=== PATIENT | female | born 1950 | race Hispanic/Latino ===

== ENCOUNTER 2019-07-19 01:34 | Emergency (ER) | payer BC, OTHER ==
[2019-07-19] MEDS ORDERED: ONDANSETRON 4 MG/2 ML VIAL ONE (02:19)
[2019-07-19] MEDS ORDERED: MORPHINE 2 MG/ML SYR ONE (02:19)
[2019-07-19] MEDS ORDERED: NA CHLORIDE 0.9% 1,000 ML ONE ×2 (02:19→03:49)
[2019-07-19 02:40] LABS: Absolute Lymphocytes (CBC) 1.1 K/uL (0.7-4.9); Basophils % 0.5 % (0-1.3); Hematocrit 34.4 % (36.0-45.0); Lymphocytes % 6.4 % (15.3-44.8); MPV 9.8 fL (7.6-11.3); RBC Red Blood Cell Count 3.85 M/uL (3.86-4.86)
[2019-07-19 03:10] LABS: Albumin 3.2 g/dL (3.4-5.0); Alkaline Phosphatase 482 U/L (45-117); BUN Blood Urea Nitrogen 27 mg/dL (7-18); Bicarbonate 23 mmol/L (21-32); Bilirubin Total 4.8 mg/dL (0.2-1.0); Glucose Level 254 mg/dL (74-106); Potassium 4.4 mmol/L (3.5-5.1); Sodium Level 131 mmol/L (136-145)
[2019-07-19 03:13] LABS: ALT/SGPT 1186 U/L (12-78); AST/SGOT 674 U/L (15-37)
[2019-07-19 03:14] LABS: Lipase > 30000 U/L (73-393)
[2019-07-19] MEDS ORDERED: CEFOXITIN/SWI 1gm 1 GM/10 ML SYR ONE (04:36)
--- NOTE | 2019-07-19 04:52 | EDPHYS ---
Physician Documentation [facility] Name: Linda Marcelo Age: 69 yrs Sex: Female : 1950 Arrival Date: 07/19/2019 Time: 01:35 Bed 15 Private MD: ED Physician Finn Palmer HPI: 07/18 02:06 This 69 yrs old Female presents to ER via Ambulatory with complaints of pkl Abdominal Pain. 02:06 The patient presents with abdominal pain in the upper abdomen. Onset: The pkl symptoms/episode began/occurred 3 day(s) ago. The symptoms do not radiate. Associated signs and symptoms: Pertinent positives: nausea and vomiting. Historical: - Allergies: :59 No Known Allergies; ao - Home Meds: :59 Lisinopril Oral [Active]; Simvastatin Oral [Active]; Levothroid Oral [Active]; ao - PMHx: :59 Hypertension; Hyperlipidemia; Hypothyroidism; ao - PSHx: :59 Knee surgery; ao - Immunization history:: Adult Immunizations up to date. - Social history:: Smoking status: Patient denies any tobacco usage or history of. Patient/guardian denies using alcohol, street drugs, IV drugs. ROS: 02:06 Eyes: Negative for injury, pain, redness, and discharge, ENT: Negative for injury, pkl pain, and discharge, Neck: Negative for injury, pain, and swelling, Cardiovascular: Negative for chest pain, palpitations, and edema, Respiratory: Negative for shortness of breath, cough, wheezing, and pleuritic chest pain. 02:06 Abdomen/GI: Positive for abdominal pain, nausea and vomiting, of the right upper quadrant and left upper quadrant. 02:06 Back: Negative for acute changes. 02:06 : Negative for urinary symptoms. 02:06 MS/extremity: Negative for acute changes. 02:06 Skin: Negative for rash. 02:06 Neuro: Negative for altered mental status. Exam: 02:06 Head/Face: Normocephalic, atraumatic. Eyes: Pupils equal round and reactive to light, pkl extra-ocular motions intact. Lids and lashes normal. Conjunctiva and sclera are non-icteric and not injected. Cornea within normal limits. Periorbital areas with no swelling, redness, or edema. ENT: Nares patent. No nasal discharge, no septal abnormalities noted. Tympanic membranes are normal and external auditory canals are clear. Oropharynx with no redness, swelling, or masses, exudates, or evidence of obstruction, uvula midline. Mucous membranes moist. Neck: Trachea midline, no thyromegaly or masses palpated, and no cervical lymphadenopathy. Supple, full range of motion without nuchal rigidity, or vertebral point tenderness. No Meningismus. Chest/axilla: Normal chest wall appearance and motion. Nontender with no deformity. No lesions are appreciated. Cardiovascular: Regular rate and rhythm with a normal S1 and S2. No gallops, murmurs, or rubs. Normal PMI, no JVD. No pulse deficits. Respiratory: Lungs have equal breath sounds bilaterally, clear to auscultation and percussion. No rales, rhonchi or wheezes noted. No increased work of breathing, no retractions or nasal flaring. 02:06 Abdomen/GI: Bowel sounds: normal, Palpation: soft, mild abdominal tenderness, in the right upper quadrant and left upper quadrant. 02:06 Back: Exam negative for acute changes. 02:06 : Exam negative for acute changes. 02:06 Musculoskeletal/extremity: Exam is negative for acute changes. 02:06 Skin: Exam negative for rash. 02:06 Neuro: Orientation: is normal, Mentation: is normal, Cranial nerves: grossly normal, Motor: is normal. Vital Signs: 01:54 BP 160 / 86; Pulse 110; Resp 16; Temp 98.0(O); Pulse Ox 100% on R/A; Weight 81.65 kg ao (R); Height 5 ft. 4 in. (162.56 cm); 03:14 BP 152 / 84; Pulse 84; Resp 18; Pulse Ox 100% ; ao 05:05 BP 129 / 76; Pulse 82; Resp 18; Pulse Ox 100% ; Pain 0/10; ao 06:40 BP 135 / 80; Pulse 75; Resp 18; Temp 98.6; Pulse Ox 100% ; Pain 0/10; ao 01:54 Body Mass Index 30.90 (81.65 kg, 162.56 cm) ao MDM: 01:51 Patient medically screened. pkl 04:11 Data reviewed: vital signs, nurses notes, lab test result(s), radiologic studies, CT pkl scan. ED course: Talked to Dr. Gaona transfer [facility] for ERCP by Bettina. Dr. to Dr. Dowd ( [place] ) at [facility]. To admit to Hospitalist. 07/18 02:06 Order name: Basic Metabolic Panel; Complete Time: 03:26 pkl 07/18 02:06 Order name: CBC with Diff; Complete Time: 03:26 pkl 07/18 02:06 Order name: Hepatic Function; Complete Time: 03:26 pkl 07/18 02:06 Order name: Lipase; Complete Time: 03:26 pkl 07/18 02:06 Order name: CT Abd/Pelvis - IV Contrast Only pkl 07/18 02:49 Order name: CREATININE WHOLE BLOOD; Complete Time: 03:26 EDMS 07/18 02:06 Order name: IV Saline Lock; Complete Time: 02:32 pkl 07/18 02:06 Order name: Labs collected and sent; Complete Time: 02:32 pkl Administered Medications: 02:20 Drug: Zofran (Ondansetron) 4 mg Route: IVP; Site: left antecubital; ao 03:22 Follow up: Response: No adverse reaction ao 02:34 Drug: NS 0.9% 1000 ml Route: IV; Rate: 125 ml/hr; Site: left antecubital; ao 03:22 Follow up: IV Status: Completed infusion ao 03:22 Follow up: Response: No adverse reaction; RASS: Alert and Calm (0) ao 02:34 Drug: morphine 2 mg Route: IVP; Site: left antecubital; ao 05:38 Follow up: Response: No adverse reaction; RASS: Alert and Calm (0) ao 04:14 Drug: NS 0.9% 1000 ml Route: IV; Rate: 1000 ml; Site: right antecubital; ao 05:24 Follow up: IV Status: Completed infusion; IV Intake: 100ml ao 04:39 Drug: Mefoxin 1 grams Route: IVPB; Infused Over: 30 mins; Site: right antecubital; ao 05:29 Follow up: IV Status: Completed infusion; IV Intake: 100ml ao 04:59 Drug: Zosyn 3.375 grams Route: IVPB; Infused Over: 60 mins; Site: right antecubital; ao 06:00 Follow up: Response: No adverse reaction; IV Status: Completed infusion; IV Intake: ao 100ml Disposition: 07/19/19 04:51 Transfer ordered to [facility]. Diagnosis is Acute cholecystitis Pancreatitis. Elevated liver functions. - Reason for transfer: Higher level of care. - Accepting physician is Dr. Parada. - Condition is Stable. - Problem is new. - Symptoms have improved. Signatures: Dispatcher [employer] EDFinn Ortiz MD MD pkl Luis Mcleod RN RN ao Corrections: (The following items were deleted from the chart) 06:58 04:51 07/19/2019 04:51 Transfer ordered to [facility]. ao Diagnosis is Acute cholecystitis Pancreatitis. Elevated liver functions. Reason for transfer: Higher level of care. Accepting physician is Dr. Parada. Condition is Stable. Problem is new. Symptoms have improved. pkl
--- NOTE | 2019-07-19 04:52 | ER ---
Nurse's Notes [facility] Name: Linda Marcelo Age: 69 yrs Sex: Female : 1950 Arrival Date: 07/19/2019 Time: 01:35 Bed 15 Private MD: Diagnosis: Acute cholecystitis Pancreatitis. Elevated liver functions Presentation: 07/18 01:54 Chief complaint: Patient states: Abdominal pain "PT point at epigastric area" for the ao past two days. Patient also complains of nausea and vomiting x2. Patient states that it feel like acid reflux. Coronavirus screen: Proceed with normal triage. Ebola Screen: Patient negative for fever greater than or equal to 101.5 degrees Fahrenheit, and additional compatible Ebola Virus Disease symptoms Patient denies exposure to infectious person. Patient denies travel to an Ebola-affected area in the 21 days before illness onset. Initial Sepsis Screen: Does the patient meet any 2 criteria? No. Patient's initial sepsis screen is negative. Does the patient have a suspected source of infection? No. Patient's initial sepsis screen is negative. Risk Assessment: Do you want to hurt yourself or someone else? Patient reports no desire to harm self or others. Onset of symptoms is unknown. 01:54 Method Of Arrival: Ambulatory ao 01:54 Acuity: JOSÉ MIGUEL 3 ao Triage Assessment: 02:03 General: Appears in no apparent distress. Behavior is calm, cooperative, appropriate ao for age. Pain: Denies pain. EENT: No signs and/or symptoms were reported regarding the EENT system. Neuro: Level of Consciousness is awake, alert, obeys commands, Oriented to person, place, time, situation, Appropriate for age Moves all extremities. Full function Speech is normal, Facial symmetry appears normal. Cardiovascular: Capillary refill < 3 seconds Patient's skin is warm and dry. Respiratory: Airway is patent Respiratory effort is even, unlabored, Respiratory pattern is regular, symmetrical. GI: Abdomen is non-distended. GI: Reports upper abdominal pain, indigestion, nausea, vomiting. : No signs and/or symptoms were reported regarding the genitourinary system. Derm: No signs and/or symptoms reported regarding the dermatologic system. Musculoskeletal: Circulation, motion, and sensation intact. Range of motion: intact in all extremities. Historical: - Allergies: 01:59 No Known Allergies; ao - Home Meds: :59 Lisinopril Oral [Active]; Simvastatin Oral [Active]; Levothroid Oral [Active]; ao - PMHx: 01:59 Hypertension; Hyperlipidemia; Hypothyroidism; ao - PSHx: 01:59 Knee surgery; ao - Immunization history:: Adult Immunizations up to date. - Social history:: Smoking status: Patient denies any tobacco usage or history of. Patient/guardian denies using alcohol, street drugs, IV drugs. Screenin:00 Abuse screen: Denies threats or abuse. Denies injuries from another. Nutritional ao screening: No deficits noted. Tuberculosis screening: No symptoms or risk factors identified. Fall Risk None identified. Assessment: 02:05 GI: Bowel sounds present X 4 quads. Abd is soft and non tender Abd is non tender. ao 03:14 Reassessment: Lab alert given to Dr Palmer. ao 04:30 Reassessment: Patient appears in no apparent distress at this time. Patient and/or ao family updated on plan of care and expected duration. Pain level reassessed. Updated daughter IN POC. 05:05 Reassessment: Patient appears in no apparent distress at this time. Waiting on room ao assignment to transfer. 05:20 Reassessment: Report given to QUANG Waters. Patient waiting on EMS for transportation at ao this time. 05:37 Reassessment: Updated patient's daughter Moira with room assigned, telephone number ao and POC. Patient waiting on EMS for transportation. 06:56 Reassessment: Hand off to EMS. Patient stable for transportation. Patient agree with ao POC and transportation. Vital Signs: 01:54 BP 160 / 86; Pulse 110; Resp 16; Temp 98.0(O); Pulse Ox 100% on R/A; Weight 81.65 kg ao (R); Height 5 ft. 4 in. (162.56 cm); 03:14 BP 152 / 84; Pulse 84; Resp 18; Pulse Ox 100% ; ao 05:05 BP 129 / 76; Pulse 82; Resp 18; Pulse Ox 100% ; Pain 0/10; ao 06:40 BP 135 / 80; Pulse 75; Resp 18; Temp 98.6; Pulse Ox 100% ; Pain 0/10; ao 01:54 Body Mass Index 30.90 (81.65 kg, 162.56 cm) ao ED Course: 01:35 Patient arrived in ED. ds1 01:50 Finn Palmer MD is Attending Physician. pkl 01:54 Luis Mcleod, QUANG is Primary Nurse. ao 01:57 Triage completed. ao 02:00 Arm band placed on right wrist. Patient placed in an exam room, on a stretcher, on ao oxygen, on fagot maker, on pulse oximetry, Patient notified of wait time. 02:00 No provider procedures requiring assistance completed. ao 02:05 Placed in gown. Bed in low position. Call light in reach. Side rails up X 1. ao 02:30 Inserted saline lock: 20 gauge in left antecubital area, using aseptic technique. Blood ao collected. 03:07 CT Abd/Pelvis - IV Contrast Only In Process Unspecified. EDMS 05:38 Patient transferred, IV remains in place. ao Administered Medications: 02:20 Drug: Zofran (Ondansetron) 4 mg Route: IVP; Site: left antecubital; ao 03:22 Follow up: Response: No adverse reaction ao 02:34 Drug: NS 0.9% 1000 ml Route: IV; Rate: 125 ml/hr; Site: left antecubital; ao 03:22 Follow up: IV Status: Completed infusion ao 03:22 Follow up: Response: No adverse reaction; RASS: Alert and Calm (0) ao 02:34 Drug: morphine 2 mg Route: IVP; Site: left antecubital; ao 05:38 Follow up: Response: No adverse reaction; RASS: Alert and Calm (0) ao 04:14 Drug: NS 0.9% 1000 ml Route: IV; Rate: 1000 ml; Site: right antecubital; ao 05:24 Follow up: IV Status: Completed infusion; IV Intake: 100ml ao 04:39 Drug: Mefoxin 1 grams Route: IVPB; Infused Over: 30 mins; Site: right antecubital; ao 05:29 Follow up: IV Status: Completed infusion; IV Intake: 100ml ao 04:59 Drug: Zosyn 3.375 grams Route: IVPB; Infused Over: 60 mins; Site: right antecubital; ao 06:00 Follow up: Response: No adverse reaction; IV Status: Completed infusion; IV Intake: ao 100ml Intake: 05:24 IV: 100ml; Total: 100ml. ao 05:29 IV: 100ml; Total: 200ml. ao 06:00 IV: 100ml; Total: 300ml. ao Outcome: 04:51 ER care complete, transfer ordered by . leonie 05:38 Condition: stable ao 05:38 Instructed on the need for transfer. ao 06:57 Transferred by ground EMS to [facility], Transfer form completed. ao X-rays sent w/ patient. 06:58 Patient left the ED. ao Signatures: Dispatcher [employer] EDFinn Ortiz MD MD pkl [place], Demi ds1 Luis Mcleod, RN RN ao
[2019-07-19] MEDS ORDERED: PIPER/TAZO/NS 3.375gm 3.375 GM/100 ML BAG ONE (04:58)
[2019-07-19 07:11] VITALS: O2SAT 100
[2019-07-19 07:15] VITALS: BP 135/80; TEMP 98.6
--- NOTE | 2019-07-19 21:05 | RAD REPORT ---
EXAM DESCRIPTION: CT Abdomen and Pelvis With Intravenous Contrast CLINICAL HISTORY: The patient is 69 years old and is Female; ABD PAIN TECHNIQUE: Axial computed tomography images of the abdomen and pelvis with intravenous contrast. S agittal and coronal reformatted images were created and reviewed. This CT exam was performed using one or more of the following dose reduction techniques: automated exposure control, adjustment of t he mA and/or kV according to patient size, and/or use of iterative reconstruction technique. COMPARISON: No relevant prior studies available. FINDINGS: LUNG BASES: Unremarkable. No mass. No consolidation. ABDOMEN: LIVER: Unremarkable. No mass. GALLBLADDER AND BILE DUCTS: The gallbladder is significantly distended. Pericholecystic inflammat ion and stranding is present. No calcified gallstones are seen. Mild biliary dilatation is noted. PANCREAS: Fatty infiltration of the pancreas is present. Stranding surrounding the pancreas is present. SPLEEN: Unremarkable. ADRENALS: Unremarkable. No mass. KIDNEYS AND URETERS: Unremarkable. The kidneys enhance symmetrically. No obstructing renal or ure teral calculus is seen. No hydronephrosis or hydroureter. No perinephric fluid or stranding. STOMACH AND BOWEL: The stomach is decompressed. The small bowel is fluid-filled with normal in c aliber. A moderate amount of stool is present throughout colon. Scattered colonic diverticula are pre sent without surrounding inflammation. There is no bowel obstruction. PELVIS: APPENDIX: No findings to suggest acute appendicitis. BLADDER: The bladder is not well distended. REPRODUCTIVE: Unremarkable as visualized. ABDOMEN and PELVIS: INTRAPERITONEAL SPACE: Unremarkable. No free air. No significant fluid collection. BONES/JOINTS: Postsurgical change of the proximal right femur is present. Bilateral pars defect s are present at L5 with grade 1 anterolisthesis of L5 on S1. SOFT TISSUES: The soft tissues are normal. VASCULATURE: Unremarkable. No abdominal aortic aneurysm. LYMPH NODES: Unremarkable. No enlarged lymph nodes. IMPRESSION: 1. Findings concerning for acute cholecystitis. Further evaluation with ultrasound and/or HIDA scan could be performed. 2. Findings suggest mild acute pancreatitis. Electronically signed by: Jahaira Handley MD 07/19/2019 3:34 AM CDT Due to temporary technical issues with the PACS/Fluency reporting system, reports are being signed by the in house radiologist without review a sa courtesy to ensure prompt reporting. The interpreting r adiologist is fully responsible for the content of the report.
== END 2019-07-19 06:58 | disposition short-term general hospital (02) ==
LOC: ER 01:34
DX: K85.90 Acute pancreatitis without necrosis or infection, unspecified (principal); K81.0 Acute cholecystitis; R79.89 Other specified abnormal findings of blood chemistry; I10 Essential (primary) hypertension; E78.5 Hyperlipidemia, unspecified; E03.9 Hypothyroidism, unspecified
CPT/HCPCS: 96365; 96361; 96368; 85025; 80048; 36415; 82565; 80076; 83690; 74177; 96375; 99285; Q9967; J2543; J2270; J7030 ×2; J2405